=== PATIENT | female | born 1945 | race African-American/Black ===

== ENCOUNTER 2017-11-17 08:09 | Emergency (ER) | payer MEDICARE ==
[~2017-11-17] VITALS: Ht 165.1 cm; Wt 55.0 kg
[2017-11-17 08:17] VITALS: BP 171/80
== END 2017-11-17 08:52 | disposition home or self-care (01) ==
LOC: ER 08:28
DX: L23.9 Allergic contact dermatitis, unspecified cause (principal); I10 Essential (primary) hypertension; Z88.6 Allergy status to analgesic agent
CPT/HCPCS: 99283